=== PATIENT | female | born 1960 | race Caucasian/White ===

== ENCOUNTER → 2017-02-20 | Outpatient (CLI) | payer OTHER ==
--- NOTE | 2017-02-20 14:58 | US ---
EXAMINATION TYPE: US pelvis complete transvag DATE OF EXAM: 02/20/2017 COMPARISON: CT abdomen and pelvis July 28, 2012 CLINICAL HISTORY: R68.89 PELVIC PAIN,D25.9 UTERINE LEIOMYOMA. TECHNIQUE: Transvaginal (TV) and Transabdominal (TA) Date of LMP: post menopausal EXAM MEASUREMENTS: Uterus: 9.0 x 5.4 x 6.4 cm Endometrial Stripe: 1.3 cm Right Ovary: 2.5 x 1.4 x 1.7 cm Left Ovary: 3.4 x 2.0 x 2.0 cm 1. Uterus: calcification measuring 0.9 x 0.6 x 0.8, probable fundal fibroid measuring 0.8 x 1.0 x 0. 8cm, probable calcified fibroid in LAURA measuring 5.1 x 4.9 x 4.0cm 2. Endometrium: thick for post menopausal patient 3. Right Ovary: wnl 4. Left Ovary: wnl 5. Bilateral Adnexa: wnl 6. Posterior cul-de-sac: wnl IMPRESSION: Prominent fibroid type uterus is redemonstrated. Endometrium is not well seen due to unde rlying fibroids but does appear to be suspiciously thickened up to 13 mm on image [id number].
== END | disposition home or self-care (01) ==
LOC: RADUSWWP 13:40
PROVIDERS: ATTEND Obstetrics & Gynecology
DX: D25.9 Leiomyoma of uterus, unspecified (principal)
CPT/HCPCS: 76830; 76856

== ENCOUNTER → 2017-02-20 | Outpatient (CLI) | payer OTHER ==
--- NOTE | 2017-02-20 14:19 | WWHP ---
[facility] - HISTORY AND PHYSICAL CHIEF COMPLAINT: The patient is here for her routine gynecologic exam and mammogram. HPI: This is a 57-year-old, G1, P1, with an LMP of 02/18/17 who has presented to establish with this office. She states it has been about 2 years since her last pelvic exam. She states her periods are regular every month, but can vary slightly in the length and range from 5 to 7 days. She denies any significant hot flashes. She is without gynecologic complaints. PAST MEDICAL HISTORY: She was once treated for overactive bladder in the past, but is no longer taking medications for this. MEDICATIONS: Ibuprofen p.r.n. ALLERGIES: No known drug allergies. PAST SURGICAL HISTORY: Umbilical hernia repair 2012 and right breast biopsy 2011. PAST OB HISTORY: One vaginal delivery done by myself. 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 SOCIAL HISTORY: She denies tobacco and drug use and has about 4 alcoholic drinks per week. She has been since 1987 and currently does not work outside the home. FAMILY HISTORY: Mother had pancreatic cancer. Father had some type of cancer which she thinks may have been bladder or colon but she is uncertain. REVIEW OF SYSTEMS: She believes she has gained about 8 pounds over the last year and she attributes this to stress eating with her mother's medical problems and recent . She denies respiratory, cardiac or GI problems. : The patient has occasional urinary urgency during the day, this is infrequent, but causes her to need to get to the bathroom right away. PHYSICAL EXAM: Blood pressure 153/76, height 5 feet 4 inches, weight 132 pounds, temperature 97.2, pulse 69. This is a well-developed, well-nourished, white female, who is alert and oriented x3 in no acute distress. HEENT is within normal limits. NECK: Supple without mass or thyromegaly. CHEST AND LUNGS: Clear to auscultation. HEART: Regular rate and rhythm. Breasts are without mass or discharge. Central nipple inversion is noted bilaterally and she states she has had this throughout her life. She does have very dense breast tissue on exam. Axillary exam is negative for adenopathy. Back: Negative for CVA tenderness. ABDOMEN: Soft, nontender, without palpable masses. PELVIC EXAM: Normal external genitalia. Cervix is deviated to the patient's left. The cervix is without lesions. There is no cervical motion tenderness. There is no evidence of prolapse. The uterus is slightly irregular and firm consistent with a fibroid uterus and is approximately 8 week size. The uterus is also deviated slightly to the patient's left. The uterus is nontender. There are no palpable adnexal masses or tenderness. Rectovaginal exam is negative for mass or tenderness and is negative for occult blood. EXTREMITIES: Nontender. IMPRESSION: 1. A 57-year-old, premenopausal female, with deviation of her uterus and cervix to her left. 2. Probable fibroid uterus, approximately 8 week size. 3. Elevated blood pressure. 4. Occasional urinary urgency, possible overactive bladder. PLAN: 1. Pap smear was performed. 2. Self breast examination was discussed. 3. Mammogram will be done today. 4. I have recommended screening colonoscopy based on her age and Dr. Velez's card was given to the patient for this. 5. Pelvic ultrasound will be scheduled to further evaluate the uterine deviation to the left. We will also try to rule out any ovarian neoplasm, which may be pushing the uterus. I feel more likely that this is being caused by uterine fibroids. 6. Kegel exercises were explained. I also recommended that she use timed voids. She will see if this helps with her occasional urinary urgency. If not, she was instructed to call and we will consider restarting her on Detrol, which she had used in the past. 7. We have discussed control options. She currently is not using anything for control. She does understand there is a chance of getting . I have recommended that she use condoms or some other type of control until she is considered menopausal. 8. She will return here in 1 year. MMODL / IJN: [id number] /
--- NOTE | 2017-02-21 10:33 | MM ---
Reason for exam: screening (asymptomatic). Last mammogram was performed 1 year and 7 months ago. History: Patient had first child at age 39. Benign excisional biopsy of the right breast, 2011. Took hormonal contraceptives for 30 years beginning at age 24. Physical Findings: A clinical breast exam by your physician is recommended on an annual basis and results should be correlated with mammographic findings. MG 3D Screening Mammo W/Cad Bilateral CC and MLO view(s) were taken. Prior study comparison: July 13, 2015, bilateral MG 3d diag mammo w/cad [facility]. June 25, 2014, bilateral MG diagnostic mammo w CAD [facility]. The breast tissue is extremely dense which could obscure a lesion on mammography. Nodular density upper central right breast, 7cm from nipple. This finding is changed when compared with previous exams. ASSESSMENT: Incomplete: need additional imaging evaluation, BI-RAD 0 RECOMMENDATION: Special view mammogram of the right breast. If lesion persists on supplemental views, image directed ultrasound is recommended. [facility] will attempt to contact patient to return for supplemental views and ultrasound if indicated.
== END ==
LOC: WWCWWP 07:54
PROVIDERS: ATTEND Obstetrics & Gynecology
DX: Z12.31 Encounter for screening mammogram for malignant neoplasm of breast (principal)
CPT/HCPCS: 77063; G0202

== ENCOUNTER → 2017-02-22 | Outpatient (CLI) | payer OTHER ==
--- NOTE | 2017-02-22 14:40 | MM ---
Reason for exam: additional evaluation requested from abnormal screening. Last mammogram was performed less than 1 month ago. History: Patient had first child at age 39. Benign excisional biopsy of the right breast, 2011. Took hormonal contraceptives for 30 years beginning at age 24. Physical Findings: Nurse did not find any significant physical abnormalities on exam. MG 3D Work Up W/Cad RT LM, spot compression MLO, and spot compression CC view(s) were taken of the right breast. Prior study comparison: February 20, 2017, bilateral MG 3d screening mammo w/cad. July 13, 2015, bilateral MG 3d diag mammo w/cad [facility]. The breast tissue is extremely dense which could obscure a lesion on mammography. No definite lesion persists in the right breast on additional images. These results were verbally communicated with the patient and result sheet given to the patient on 02/22/17. ASSESSMENT: Benign, BI-RAD 2 RECOMMENDATION: Return to routine screening mammogram schedule for both breasts.
== END ==
LOC: RADMAMWWP 13:40
PROVIDERS: ATTEND Obstetrics & Gynecology
DX: R92.8 Other abnormal and inconclusive findings on diagnostic imaging of breast (principal)
CPT/HCPCS: G0206; G0279